=== PATIENT | female | born 1990 | race Caucasian/White ===

== ENCOUNTER 2025-04-29 11:41 | Outpatient (CLI) | payer BC, SELFPAY ==
--- NOTE | ~2025-04-29 | XR_ITS ---
AP view of the pelvis and AP and lateral views of the bilateral hips Clinical history: Pain Findings: No acute fracture or dislocation is seen. Osseous alignment is anatomic. Bilateral hip and SI joint spaces are preserved. Soft tissues are unremarkable. Impression: No significant abnormality is seen. Reviewed, dictated and finalized at location . Impression: No significant abnormality is seen.
--- OUTSIDE RECORDS SUMMARY | 2025-04-29 11:45 | XMS_ITS | Clinical Summary ---
Author Organization [employer] Address [address] [facility] [place] [address] Care Team Providers Care Cloak Room Attendant Name Role Phone Fercho Freed MD Primary Care Provider Source Comments [facility],non-owned Affiliates and Associated Physician Practices is amultiple site organization consisting of ambulatory clinics and hospital sitesin [place], [place], [place] and [place]. This disclosure is being madepursuant to the Care Everywhere program and may not contain all information available regarding this patient. Last updated 18.[facility] Allergies No known active allergies Medications * Be aware that medications may not be up to date on this document. Alwaysverify current medications with the patient. montelukast (SINGULAIR) 10 MG tablet Take 1 (one) tablet by mouth once daily 1 Active omeprazole (PRILOSEC) 40 MG capsule Take 1 (one) capsule by mouth once daily 1 Active traMADol (ULTRAM) 50 MG tablet 2 Active benzonatate (Tessalon) 200 MG capsule Take 1 (one) capsule by mouth 3 times daily as needed for Cough 30 capsule 2 Active Additional Information Patient not taking.Reported on 01/05/2023 albuterol HFA (Ventolin HFA) 108 (90 Base) MCG/ACT inhaler Inhale 2 (two) puffs by mouth every 4 hours as needed 18 g 2 Active Additional Information Patient not taking.Reported on 01/05/2023 amoxicillin-cla vulanate (Augmentin) 875-125 MG tablet Take 1 (one) tablet by mouth 2 times daily with morning and evening meal 20 tablet 3 Active chlorhexidine (Peridex) 0.12 % solution Swish and spit 2 times daily 473 mL 3 Active fluconazole (Diflucan) 150 MG tablet Take 1 tablet if signs of yeast infection are present, may repeat 48-72 hours later if needed. 2 tablet 3 Active methylPREDNISol one (Medrol Dosepak) 4 MG tablet Take by mouth as directed Take as directed by mouth per package instructions. 21 tablet 4 Active clindamycin (Cleocin) 300 MG capsule Take 1 (one) capsule by mouth 3 times daily 21 capsule 4 Active Active Problems No known active problems Encounters Date Type Department Care Team Description 02/16/2025 10:35 AM CDT Video Visit 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 Dental abscess from Last 3 Months Social History Tobacco Use Types Packs/Day Years Used Date Smoking Tobacco: Never Smokeless Tobacco: Never Alcohol Use Standard Drinks/Week Comments No 0 (1 standard drink = 0.6 oz pur e alcohol) PHQ-2 Answer Date Recorded Patient Health Questionnaire-2 Score 0 02/16/2025 Comments No Sex and Gender Information Value Date Recorded Sex Assigned at Not on file Legal Sex Female 2:04 PM [employer] Gender Identity Not on file Sexual Orientation Not on file Last Filed Vital Signs Vital Sign Reading Time Taken Comments Blood Pressure 133/95 06/04/2012 3:28 AM CDT Pulse 90 06/04/2012 3:28 AM CDT Temperature 36.6 C (97.8 F) 06/03/2012 10:50 PM CDT Respiratory Rate 20 06/03/2012 10:50 PM CDT Oxygen Saturation 98% 06/04/2012 3:28 AM CDT Inhaled Oxygen Concentration - - Weight 90.7 kg (200 lb) 06/03/2012 10:50 PM CDT Height 165.1 cm (5' 5) 06/03/2012 10:50 PM CDT Body Mass Index 33.28 06/03/2012 10:50 PM CDT Plan of Treatment Health Maintenance Due Date Last Done Comments HIV SCREENING 2003 HEPATITIS C SCREENING 04/04/2006 DTAP/TDAP/TD VACCINES (1 - Tdap) 2007 HEPATITIS B VACCINE (1 of 3 - 19+ 3-dose series) 2007 PAP SMEAR 2009 HPV VACCINE (1 - 3-dose SCDM series) 2015 COVID-19 VACCINE (2 - 2023-2 5 season) 2024 12/23/2020 INFLUENZA VACCINE (#1) 2025 ZOSTER VACCINE (1 of 2) 2038 DEPRESSION SCREENING Completed 02/16/2025, 07/14/2024 HIB VACCINE Aged Out No longer eligi ble based on patient's age to complete this topic MENINGOCOCCAL (Group B) VACCINE SHARED DECISION-MAKING Aged Out No longer eligible based on patient's age to complete this topic MENINGOCOCCAL GROUPS A/C/Y/W VACCINE Aged Out No longer eligible b ased on patient's age to complete this topic PNEUMOCOCCAL VACCINE Aged Out No long er eligible based on patient's age to complete this topic Care Teams Cloak Room Attendant Relationship Specialty Start Date End Date Fercho Freed MD [address] [place] [id number] PCP - General Internal Medicine 11/27/21
== END 2025-04-29 11:42 | disposition home or self-care (01) ==
PROVIDERS: PCP Family Medicine; Visit Provider Family Medicine
DX: R93.7 Abnormal findings on diagnostic imaging of other parts of musculoskeletal system (principal); M25.551 Pain in right hip
CPT/HCPCS: 73521